=== PATIENT | female | born 1985 | race Caucasian/White ===

== ENCOUNTER 2019-10-27 15:44 | Emergency (ER) | payer OTHER, MEDICAID ==
[2019-10-27 16:26] VITALS: BP 126/67
[2019-10-27 16:46] LABS: RAPID STREP SCREEN Negative (Negative)
[2019-10-27] MEDS ORDERED: DEXAMETHASONE 10 MG/ML VIAL PO STA (17:38)
[2019-10-27] MEDS ORDERED: CHERRY SYRUP 10 ML UDC PO ONE (17:38)
--- NOTE | 2019-10-27 17:38 | ED Physician Documentation ---
History of Present Illness - Stated complaint Stated Complaint: SORE THROAT/NAUSEA - Chief complaint Chief Complaint: Heent - Additonal information Additional information: This is a 33-year-old female whose son recently tested positive for strep throat who presents with sore throat, tactile fever, and some cough and nasal congestion. She been able to eat and drink normally, but given her symptoms positive show to make sure that she did not have strep throat. No vomiting. Review of Systems Throat: reports: Sore throat Respiratory: reports: Cough PD PAST MEDICAL HISTORY - Past Medical History Past Medical History: No - Past Surgical History Past Surgical History: No - Present Medications Home Medications: Ambulatory Orders Medication Instructions Recorded Confirmed Amoxicillin 500 mg PO BID #20 capsule 10/27/19 - Allergies Allergies/Adverse Reactions: Allergies Allergy/AdvReac Type Severity Reaction Status Date / Time No Known Drug Allergies Allergy Verified 10/27/19 16:26 - Social History Does the pt smoke?: No Smoking Status: Never smoker PD ED PE NORMAL - General General: Alert and oriented X 3 - HEENT HEENT: Atraumatic, Other (Posterior pharynx is mildly erythematous, no exudate, uvula is midline.) - Neck Neck: Other (Anterior cervical lymphadenopathy, lymph nodes are mobile and rubbery) - Cardiac Cardiac: RRR - Respiratory Respiratory: No respiratory distress, Clear bilaterally - Abdomen Abdomen: Soft, Non tender - Neuro Neuro: Alert and oriented X 3 Results - Vitals Vitals: Vital Signs - 24 hr 10/27/19 16:24 Temperature 36.6 C Heart Rate 82 Respiratory 17 Rate Blood Pressure 126/67 O2 Saturation 98 Oxygen O2 Source Room air - Labs Labs: Laboratory Tests 10/27/19 10/27/19 16:20 16:20 Influenza A (Rapid) Negative Influenza B (Rapid) Negative Group A Strep Rapid Negative PD MEDICAL DECISION MAKING - ED course ED course: This is a very well-appearing 33-year-old female who presents with concern for potential strep throat given that her son and daughter recently tested positive for it. No signs/symptoms of otitis media or pneumonia. On exam she has mild pharynx erythema, no exudate, she has not had a fever, and overall is low to moderate risk for strep by center criteria, and her rapid strep is negative. Given that she has multiple children who have tested positive for strep I wrote her prescription for amoxicillin and explained that we are sending her throat swab for culture, she will be called if her culture is positive at which point s he can start amoxicillin. Otherwise she should practice supportive care for what is likely a viral illness. I reviewed return precautions, patient was in agreement and was discharged home. Departure - Departure Disposition: Home, Self Care Clinical Impression: Viral illness Condition: Good Instructions: ED Viral Syndrome Prescriptions: Amoxicillin 500 mg PO BID #20 capsule Comments: Your strep swab and flu swabs were negative today. I am prescribing you a prescription of amoxicillin to have on hand, but I recommend not starting it unless your culture returns as positive. If your culture comes back positive you will be called, probably within the next 48 hours. You may take 650 mg Tylenol, 600 mg of ibuprofen as needed for fever pain. Return to the emergency department if you are having significantly worsening symptoms Discharge Date/Time: 10/27/19 18:00
== END 2019-10-27 18:00 | disposition home or self-care (01) ==
LOC: ED 15:44
DX: B34.9 Viral infection, unspecified (principal); Z20.818 Contact with and (suspected) exposure to other bacterial communicable diseases
CPT/HCPCS: 87070; 87275; 87276; 87430; 99283

== ENCOUNTER 2021-02-04 18:48 | Emergency (ER) | payer MEDICAID, OTHER ==
[2021-02-04 19:18] LABS: BILIRUBIN,URINE NEGATIVE (NEGATIVE); GLUCOSE, URINE (UA) NEGATIVE (NEGATIVE); KETONES,URINE (UA) NEGATIVE (NEGATIVE); LEUKOCYTE ESTERASE, URINE NEGATIVE (NEGATIVE); NITRITE,URINE NEGATIVE (NEGATIVE); OCCULT BLOOD,URINE SMALL (NEGATIVE); PROTEIN,URINE NEGATIVE (NEGATIVE); UROBILINOGEN,URINE 0.2 (NORMAL) E.U./dL (NORMAL)
[2021-02-04 19:19] LABS: CLARITY,URINE CLEAR (CLEAR); HCG UR QUAL NEGATIVE
[2021-02-04 19:22] LABS: BASOPHILS % (AUTO) 0.4 %; EOSINOPHILS # (AUTO) 0.1 10^3/uL (0.0-0.7); EOSINOPHILS % (AUTO) 0.9 %; HCT - HEMATOCRIT 40.6 % (37.0-47.0); HGB - HEMOGLOBIN 13.5 g/dL (12.0-16.0); LYMPHOCYTES # (AUTO) 2.2 10^3/uL (1.5-3.5); LYMPHOCYTES % (AUTO) 21.1 %; MEAN CORPUSCULAR HEMOGLOBIN 31.5 pg (27.0-31.0); MEAN CORPUSCULAR HGB CONC 33.3 g/dL (32.0-36.0); MEAN CORPUSCULAR VOLUME 94.9 fL (81.0-99.0); MEAN PLATELET VOLUME 9.5 fL (7.9-10.8); MONOCYTES # (AUTO) 0.9 10^3/uL (0.0-1.0); MONOCYTES % (AUTO) 8.7 %; NEUTROPHILS % (AUTO) 68.5 %; PLT - PLATELET COUNT 241 10^3/uL (130-450); RED BLOOD COUNT 4.28 10^6/uL (4.20-5.40); RED CELL DISTRIBUTION WIDTH 12.6 % (12.0-15.0); WHITE BLOOD COUNT 10.2 x10^3/uL (4.8-10.8)
[2021-02-04 19:37] LABS: ALBUMIN 4.5 g/dL (3.2-5.5); ALBUMIN/GLOBULIN RATIO 1.5 (1.0-2.2); BILIRUBIN,TOTAL 0.6 mg/dL (0.2-1.0); POTASSIUM 3.3 mmol/L (3.5-5.0); TOTAL PROTEIN 7.5 g/dL (6.7-8.2)
[2021-02-04 19:38] LABS: BACTERIA,URINE Rare /HPF (None Seen); SQUAMOUS EPITHELIAL CELL,UR FEW Squamous (<= Few); WBC,URINE 0-3 /HPF (0-5)
[2021-02-04] MEDS ORDERED: KETOROLAC 30 MG/ML VIAL IVP STA (20:23)
[2021-02-04] MEDS ORDERED: IOPAMIDOL-300 100 ML VIAL ONE (20:43)
--- NOTE | 2021-02-04 20:59 | ED Physician Documentation ---
PD HPI ABD PAIN - Stated complaint Stated Complaint: RIGHT SIDE ABD PX - Chief complaint Chief Complaint: Abd Pain - History obtained from History obtained from: Patient - History of Present Illness Timing - onset: Yesterday Timing - duration: Days (2) Timing - details: Gradual onset, Intermittant Pain level max: 8 Pain level now: 5 Quality: Aching, Pain Location: RLQ Radiation: Right flank Improved by: No: Eating, Laying still, Vomiting, BM, Position, Meds Worsened by: No: Eating, Moving, Breathing, Position, Palpation Associated symptoms: No: Fever, Nausea, Vomiting, Hematemesis, Diarrhea, Constipation, Melena, Hematochezia, Dysuria, Hematuria, Chest pain, Dizzy, Near syncope / syncope, Loss of appetite, Weight loss, Vaginal bleeding, Vaginal dc Similar symptoms before: Diagnosis (states had a kidney stone several years ago) Review of Systems Constitutional: denies: Fever, Chills GI: denies: Vomiting, Diarrhea : denies: Now EGA Skin: denies: Rash Musculoskeletal: denies: Neck pain, Back pain Neurologic: denies: Headache PD PAST MEDICAL HISTORY - Past Medical History Past Medical History: Yes : Kidney stones - Past Surgical History Past Surgical History: Yes General: Appendectomy /PERSONAL COUNSELOR: Dilation and currettage HEENT: Tonsil/Adenoidectomy - Present Medications Home Medications: Ambulatory Orders Medication Instructions Recorded Confirmed Amoxicillin 500 mg PO BID #20 capsule 10/27/19 HYDROcod/ACETAM 5/325 [[place] 5/325] 1 - 2 ea PO Q6H PRN #14 tablet 02/04/21 Ibuprofen [Motrin] 800 mg PO Q8H PRN #30 tablet 02/04/21 Ondansetron Odt [Zofran] 4 mg TL Q6H PRN #10 tablet 02/04/21 - Allergies Allergies/Adverse Reactions: Allergies Allergy/AdvReac Type Severity Reaction Status Date / Time No Known Drug Allergies Allergy Verified 02/04/21 18:50 - Social History Does the pt smoke?: Yes Smoking Status: Current every day smoker Does the pt drink ETOH?: No Does the pt have substance abuse?: No - Immunizations Immunizations are current?: Yes - POLST Patient has POLST: No PD ED PE NORMAL - Vitals Vital signs reviewed: Yes - General General: Alert and oriented X 3, No acute distress, Well developed/nourished - HEENT HEENT: PERRL, Moist mucous membranes - Neck Neck: Supple, no meningeal sign - Cardiac Cardiac: RRR, Strong equal pulses - Respiratory Respiratory: No respiratory distress, Clear bilaterally - Abdomen Abdomen: Soft, Non distended, Other (mild tenderness to palpation right lower quadrant. No peritoneal signs.) - Back Back: No CVA TTP - Derm Derm: Warm and dry - Extremities Extremities: No edema - Neuro Neuro: Alert and oriented X 3 - Psych Psych: Normal mood, Normal affect Results - Vitals Vitals: Vital Signs - 24 hr 02/04/21 02/04/21 02/04/21 18:50 18:54 20:10 Temperature 36.5 C 36.5 C Heart Rate 100 100 96 Respiratory 16 16 16 Rate Blood Pressure 150/100 H 150/100 H 101/81 H O2 Saturation 100 100 100 02/04/21 22:14 Temperature 36.7 C Heart Rate 92 Respiratory 16 Rate Blood Pressure 103/82 H O2 Saturation 100 Oxygen O2 Source Room air - Labs Labs: Laboratory Tests 02/04/21 02/04/21 02/04/21 19:06 19:18 19:18 WBC 10.2 RBC 4.28 Hgb 13.5 Hct 40.6 MCV 94.9 MCH 31.5 H MCHC 33.3 RDW 12.6 Plt Count 241 MPV 9.5 Neut # (Auto) 7.0 H Lymph # (Auto) 2.2 [place] # (Auto) 0.9 Eos # (Auto) 0.1 Baso # (Auto) 0.0 Absolute Nucleated RBC 0.00 Nucleated RBC % 0.0 Sodium 135 Potassium 3.3 L Chloride 100 L Carbon Dioxide 26 Anion Gap 9.0 BUN 17 Creatinine 1.0 Estimated GFR (MDRD) 63 L Glucose 89 Calcium 9.0 Total Bilirubin 0.6 AST 19 ALT 18 Alkaline Phosphatase 58 Total Protein 7.5 Albumin 4.5 Globulin 3.0 Albumin/Globulin Ratio 1.5 Lipase 29 Urine Color YELLOW Urine Clarity CLEAR Urine pH 6.[address] 1.020 Urine Protein NEGATIVE Urine Glucose (UA) NEGATIVE Urine Ketones NEGATIVE Urine Occult Blood SMALL H Urine Nitrite NEGATIVE Urine Bilirubin NEGATIVE Urine Urobilinogen 0.2 (NORMAL) Ur Leukocyte Esterase NEGATIVE Urine RBC 6-10 H Urine WBC 0-3 Ur Squamous Epith Cells FEW Squamous Urine Bacteria Rare Ur Microscopic Review INDICATED Urine Culture Comments NOT INDICATED Urine HCG, Qual NEGATIVE - Rads (name of study) CT abdomen pelvis Radiology: Prelim report reviewed, EMP read contemporaneously, See rad report PD MEDICAL DECISION MAKING - ED course Complexity details: reviewed results, re-evaluated patient, considered d ifferential, d/w patient ED course: Pain is well controlled in the emergency department. She has a 3 mm right UVJ stone. No fevers. No chills. No vomiting no UTI. No significant lab abnormality days. Will place on pain medication for home and have her follow-up with her doctor for further care. Patient counseled regarding signs and symptoms for which I believe and urgent re-evaluation would be necessary. Patient with good understanding of and agreement to plan and is comfortable going home at this time This document was made in part using voice recognition software. While efforts are made to proofread this document, sound alike and grammatical errors may occur. IMPRESSION: 1. 3 mm right UVJ stone with moderate right-sided hydronephrosis and hydroureter. No left-sided renal stone or hydronephrosis. 2. Prior appendectomy. No bowel obstruction. No abnormal bowel wall thickening. Mild to moderate constipation. 3. Hepatomegaly. Contracted gallbladder. No biliary ductal dilatation. Departure - Departure Disposition: 01 Home, Self Care Clinical Impression: Renal colic on right side Condition: Good Instructions: ED Stone Renal W Colic Follow-Up: your,doctor in 1 week [Other] Prescriptions: Ibuprofen [Motrin] 800 mg PO Q8H PRN #30 tablet PRN Reason: PAIN &/OR FEVER HYDROcod/ACETAM 5/325 [[place] 5/325] 1 - 2 ea PO Q6H PRN #14 tablet PRN Reason: Pain Ondansetron Odt [Zofran] 4 mg TL Q6H PRN #10 tablet PRN Reason: Nausea / Vomiting Comments: Use the medications as prescribed. You do have a 3 mm right ureteral stone, this is at the ureterovesicular junction, near your bladder. It should pass without difficulty. Follow-up with your doctor as needed for further care. Return especially for fevers or uncontrolled pain. Do not drink alcohol or drive while on narcotic pain medicine. Note that many narcotic pain relievers also contain tylenol/acetaminophen. Please ensure that your total dose of acetaminophen from all sources does not exceed 3 grams (3000mg) per day. You may constipated on this medication, take a stool softener such as "Colace" twice a day while you are on it. Also recommend a lvvr-aua-qqfdsup laxative such as senna or MiraLAX any day that you do not have a bowel movement. If you received narcotic pain medication in the emergency department, do not drive or operate machinery for the next [address] scan: IMPRESSION: 1. 3 mm right UVJ stone with moderate right-sided hydronephrosis and hydroureter. No left-sided renal stone or hydronephrosis. 2. Prior appendectomy. No bowel obstruction. No abnormal bowel wall thickening. Mild to moderate constipation. 3. Hepatomegaly. Contracted gallbladder. No biliary ductal dilatation. Discharge Date/Time: 02/04/21 22:21
[2021-02-04] MEDS ORDERED: IOPAMIDOL-300 100 ML VIAL IVP ONE (21:26)
--- NOTE | 2021-02-04 21:29 | CT Report ---
PROCEDURE: Abdomen/Pelvis W INDICATIONS: R sided abd pain, has had appendectomy CONTRAST: IV CONTRAST: Isovue 300 ml: 100 PO CONTRAST: *NO PO CONTRAST TECHNIQUE: After the administration of IV contrast, 5 mm thick sections acquired from the diaphragms to the symp hysis. 5 mm thick coronal and sagittal reformats were acquired. For radiation dose reduction, the f ollowing was used: automated exposure control, adjustment of mA and/or kV according to patient size. COMPARISON: None. FINDINGS: Image quality: Excellent. ABDOMEN: Lung bases: Lung bases are clear. Heart size is normal. Solid organs: Liver is enlarged. No discrete hepatic lesion. Spleen is normal in size. Gallbladder i s contracted and shows no gross abnormality. Biliary system is non dilated. Pancreas enhances harley lly. No adrenal nodules. Kidneys demonstrate normal size and enhancement, without left-sided hydron ephrosis. Moderate right-sided hydronephrosis or hydroureter is seen with 3 mm stone seen in right UV J. Peritoneum and bowel: Bowel loops demonstrate normal wall thickness and caliber. No free fluid or a ir. Appendix is surgically absent. No peritoneal abscess collection. Mild fecal stasis in the colon i s seen. Nodes and vessels: No retroperitoneal or mesenteric adenopathy by size criteria. Aorta and inferior vena cava are normal in size. Miscellaneous: No ventral hernias. PELVIS: Genitourinary: Bladder wall thickness is normal. Bulky appearing uterus is seen. No gross abnormali ty is seen in bilateral ovaries. Miscellaneous: No inguinal hernias or adenopathy. Bones: No suspicious bony lesions. No vertebral body compression fractures. IMPRESSION: 1. 3 mm right UVJ stone with moderate right-sided hydronephrosis and hydroureter. No left-sided renal stone or hydronephrosis. 2. Prior appendectomy. No bowel obstruction. No abnormal bowel wall thickening. Mild to moderate cons tipation. 3. Hepatomegaly. Contracted gallbladder. No biliary ductal dilatation. Reviewed by: Rey Barnett MD on 02/04/2021 9:28 PM PDT Approved by: Rey Barnett MD on 02/04/2021 9:28 PM PDT Station ID: [id number]
[2021-02-04 22:15] VITALS: BP 103/82
--- OUTSIDE RECORDS SUMMARY | 2021-02-06 03:17 | EXTERNAL MEDICAL SUMMARY RPT | Continuity of Care Document ---
:1985 Demographics Phone Unavailable Preferred Language Unknown Marital Status Unknown Islam Affiliation Unknown Race Unknown Ethnic Group Unknown Author Organization [facility] Address [address] [phone] Phone Social History date description facility [phone]
--- OUTSIDE RECORDS SUMMARY | 2021-02-06 03:18 | EXTERNAL MEDICAL SUMMARY RPT | Continuity of Care Document ---
:1985 Demographics Phone Unavailable Preferred Language Unknown Marital Status Unknown Hoahaoism Affiliation Unknown Race Unknown Ethnic Group Unknown Author Organization [facility] Address [address] [id number] Phone Social History date description facility [phone]
== END 2021-02-04 22:21 | disposition home or self-care (01) ==
LOC: ED 18:48
DX: N13.2 Hydronephrosis with renal and ureteral calculous obstruction (principal); F17.200 Nicotine dependence, unspecified, uncomplicated
CPT/HCPCS: 36415; 74177; 80053; 81001; 81025; 83690; 85025; 96374; 99284; Q9967; 81003; 87086